=== PATIENT | female | born 1995 | race Caucasian/White ===

== ENCOUNTER 2016-08-27 00:19 | Emergency (ER) | payer SELFPAY ==
[~2016-08-27] VITALS: Ht 175.3 cm; Wt 77.6 kg
--- NOTE | 2016-08-27 00:20 | NUR ---
20 YO FEMALE BB RA. PER EMS, PT WAS AT HOME DRINKING WINE AND ATE AN "EDIBLE", BOYFRIEND CALLED 911. PT ASSISTED TO ER BED, SKIN WARM AND DRY, RR EVEN AND UNLABORED. AWAITING ORDERS FROM PROVIDER
--- NOTE | 2016-08-27 01:30 | NUR ---
BOYFRIEND AT BED SIDE
--- NOTE | 2016-08-27 03:31 | NUR ---
PT AMBULATED TO ER RESTROOM WITH STEADY GAIT
[2016-08-27 03:43] VITALS: BP 117/64
--- NOTE | 2016-08-27 03:43 | NUR ---
Patient discharged to home in stable condition. Written and verbal after care instructions given. Patient verbalizes understanding of instruction. PT ambulatory with a steady gait VITAL SIGNS WITHIN NORMAL LIMITS.
== END 2016-08-27 03:43 | disposition home or self-care (01) ==
LOC: ER 00:21
DX: F10.129 Alcohol abuse with intoxication, unspecified (principal)
CPT/HCPCS: 82962-TC; A4606; Z7610